=== PATIENT | female | born 1945 | race Caucasian/White ===

== ENCOUNTER 2017-12-28 20:25 | Inpatient (IN) | payer MEDICARE ==
[~2017-12-28] VITALS: Ht 162.6 cm; Wt 65.9 kg
[~2017-12-28 20:25] MED LIST: ADLT ASA LOW81 MG PO; ALBUTEROL S2.5 MG/.5 IN; ANTIVERT PO; ASTEPRO0.15 % NAS; AUGMENTIN875TAB PO; AZELASTINE0.1 %; BABY ASPIRIN81 MG PO; CEPHALEXIN500 MG PO; CIPRO XR500 MG PO; CIPRO500 MG PO; CIPROFLOXACN500 MG PO; CRESTOR10 MG PO; FISH OIL1000 M1 PO; FISH OIL1000 MG PO; FLONASE SPRAY50 MC1; FLORASTOR250 M1 PO; FLUTICASONE50 MCG; GLIPIZIDE10 M1 PO; GLUCOTROL10 MG PO; JANUVIA100 MG PO; KEFLEX500 MG PO; LANTUS SC; LANTUS100 UNIT/M SC; LEVAQUIN500 MG PO; LEVAQUIN750 MG PO; LEXAPRO10 MG PO; LOTREL 5/101 CAP PO; METFORMIN1000 MG PO; NASONEX50 MCG/AC; NICOTINE21 MG/24 H TD; NITROGLYCER0.4 MG SL; NOVOLOG FLEXPEN SC; PREDNISONE10 MG PO; PROAIR HFA IN; QVAR80 MCG IN; SM ASA CHLD81 MG OR; SPIRIVA HANDIHALER IN; SYMBICORT1 AE1 IN; TESSALON200 MG PO; TORADOL OR; VITAMIN D31000 UNI1 PO; VITAMIN D400 UNI2 OR; ZITHROMAX250 MG PO; ZYRTEC10 MG PO; [UNRECOGNIZED DRUG - OTHER] PO
[2017-12-28 21:35] LABS: HEMOGLOBIN 15.6 g/dl (12.0-16.0); IMMATURE GRANULOCYTES 0.4 % (0.0-1.0); MEAN CELL VOLUME 92.7 fL CALC (80.0-100.0); MEAN CORPUSCULAR HGB 31.5 pG CALC (26.0-32.0); MEAN CORPUSCULAR HGB CONC 33.9 g/L CALC (32.0-36.0); NEUT# 11.09 thou/uL (2.00-7.15); RED BLOOD COUNT 4.96 mill/uL (4.20-5.60); RED CELL DISTRI WIDTH 12.3 % (11.5-15.5)
[2017-12-28 21:49] LABS: ALBUMIN 4.1 g/dL (3.2-5.0); ALKALINE PHOSPHATASE 115 u/l (38-126); ANION GAP 14 (6-22 (CALC)); BILIRUBIN, TOTAL 0.3 mg/dL (0.0-1.4); BUN 17 mg/dL (8-23); BUN/CREATININE RATIO 21 (12-20 (CALC)); CARBON DIOXIDE 25 mmol/l (22-30); CHLORIDE 109 mmol/l (95-108); CREATININE 0.8 mg/dL (0.5-1.0); GFR > 60 ML/MIN (>=60 (CALC)); GFR FOR AFR.AMER. > 60 ML/MIN (>=60 (CALC)); SGOT/AST 38 u/l (9-36); SGPT/ALT 24 u/l (11-66); SODIUM 144 mmol/l (137-146); TOTAL PROTEIN 6.9 g/dL (6.3-8.2)
[2017-12-28 21:50] LABS: ACT PARTIAL THROMBO TIME 24.3 SECONDS (20.0-32.5); PROTHROMBIN TIME 10.7 SECONDS (9.0-12.5)
[2017-12-29 00:35] VITALS: BP 142/73
[2017-12-29 05:40] LABS: URINE BILIRUBIN - DIPSTICK NEGATIVE (NEGATIVE); URINE BLOOD DIPSTICK NEGATIVE (NEGATIVE); URINE COLOR YELLOW; URINE GLUCOSE - DIPSTICK NEGATIVE (NEGATIVE); URINE KETONE NEGATIVE (NEGATIVE); URINE LEUK ESTERASE NEGATIVE (NEGATIVE); URINE NITRITE - DIPSTICK NEGATIVE (Negative); URINE PROTEIN - DIPSTICK 30 mg/dL (NEG-TRACE); URINE SPECIFIC GRAVITY 1.025; URINE UROBILINOGEN - DIPSTICK 0.2 E.U./dL (0.2)
[2017-12-29 05:45] LABS: URINE CLARITY CLEAR
[2017-12-29 05:53] LABS: URINE RBC 0-2 RBC/hpf (0-5); URINE WBC 0-2 WBC/hpf (0-5)
[2017-12-29 06:00] VITALS: BP 125/60
[2017-12-29 08:00] VITALS: BP 113/63
[2017-12-29 08:55] LABS: CHOLESTEROL HDL RATIO 2.6 (<4.4 (CALC))
[2017-12-29 15:15] VITALS: BP 108/52
== END 2017-12-29 18:12 | DRG 536 ==
LOC: ED 20:25 → ED-I 23:00 → ED 23:50 → MS2 23:51
PROVIDERS: Emergency Medicine; Nurse Practitioner Family; ADMIT Internal Medicine; ATTEND Internal Medicine
PROC: 0T9B70Z Drainage of Bladder with Drainage Device, Via Natural or Artificial Opening (ICD-10-PCS; principal; 2017-12-28)
DX: S72.142A Displaced intertrochanteric fracture of left femur, initial encounter for closed fracture (principal); E11.8 Type 2 diabetes mellitus with unspecified complications; I44.7 Left bundle-branch block, unspecified; J44.9 Chronic obstructive pulmonary disease, unspecified; I10 Essential (primary) hypertension; E78.5 Hyperlipidemia, unspecified; F41.9 Anxiety disorder, unspecified; F32.9 Major depressive disorder, single episode, unspecified; F17.210 Nicotine dependence, cigarettes, uncomplicated; M81.0 Age-related osteoporosis without current pathological fracture; W01.0XXA Fall on same level from slipping, tripping and stumbling without subsequent striking against object, initial encounter; Z79.4 Long term (current) use of insulin; Z85.828 Personal history of other malignant neoplasm of skin; Z82.49 Family history of ischemic heart disease and other diseases of the circulatory system

== ENCOUNTER 2018-05-03 16:39 | Inpatient (IN) | payer MEDICARE ==
[~2018-05-03] VITALS: Ht 165.1 cm; Wt 60.3 kg
[~2018-05-03 16:39] MED LIST changes: +ASPIRINCHW 81MG PO; -BABY ASPIRIN81 MG PO; +KONSYL PO; +VITAMIN D400 UNI1 PO
[2018-05-07] VITALS (8 sets, daily range): BP systolic 89–113; BP diastolic 41–64
[2018-05-08 00:17] VITALS: BP 104/54
[2018-05-08 04:00] VITALS: BP 140/66
[2018-05-08 05:35] LABS: HEMATOCRIT 40.4 % (37.0-47.0); MEAN CELL VOLUME 93.5 fL CALC (80.0-100.0); MEAN CORPUSCULAR HGB 30.3 pG CALC (26.0-32.0); MEAN CORPUSCULAR HGB CONC 32.4 g/L CALC (32.0-36.0); RED BLOOD COUNT 4.32 mill/uL (4.20-5.60); RED CELL DISTRI WIDTH 12.9 % (11.5-15.5)
[2018-05-08 05:53] LABS: BUN 9 mg/dL (8-23); BUN/CREATININE RATIO 16 (12-20 (CALC)); CARBON DIOXIDE 25 mmol/l (22-30); CHLORIDE 103 mmol/l (95-108); CREATININE 0.5 mg/dL (0.5-1.0); GFR > 60 ML/MIN (>=60 (CALC)); GFR FOR AFR.AMER. > 60 ML/MIN (>=60 (CALC)); MAGNESIUM 1.5 mg/dL (1.6-2.3); POTASSIUM 4.6 mmol/l (3.5-5.1)
[2018-05-08 06:05] LABS: ANION GAP 13 (6-22 (CALC))
[2018-05-08 06:06] LABS: SODIUM 136 mmol/l (137-146)
[2018-05-08 06:11] LABS: HEMOGLOBIN 13.1 g/dl (12.0-16.0)
[2018-05-08 07:30] VITALS: BP 132/59
[2018-05-08 15:36] VITALS: BP 151/67
[2018-05-08 19:00] VITALS: BP 149/73
[2018-05-08 23:49] VITALS: BP 135/69
[2018-05-09 04:00] VITALS: BP 154/62
[2018-05-09 05:29] LABS: HEMATOCRIT 42.2 % (37.0-47.0); IMMATURE GRANULOCYTES 0.5 % (0.0-5.0); MEAN CELL VOLUME 90.8 fL CALC (80.0-100.0); MEAN CORPUSCULAR HGB 30.1 pG CALC (26.0-32.0); MEAN CORPUSCULAR HGB CONC 33.2 g/L CALC (32.0-36.0); NEUT# 11.6 thou/uL (2.00-7.15); RED BLOOD COUNT 4.65 mill/uL (4.20-5.60); RED CELL DISTRI WIDTH 12.8 % (11.5-15.5)
[2018-05-09 05:36] LABS: ANION GAP 14 (6-22 (CALC)); BUN 8 mg/dL (8-23); BUN/CREATININE RATIO 15 (12-20 (CALC)); CARBON DIOXIDE 25 mmol/l (22-30); CHLORIDE 99 mmol/l (95-108); CREATININE 0.5 mg/dL (0.5-1.0); GFR > 60 ML/MIN (>=60 (CALC)); GFR FOR AFR.AMER. > 60 ML/MIN (>=60 (CALC)); MAGNESIUM 1.8 mg/dL (1.6-2.3); POTASSIUM 4.5 mmol/l (3.5-5.1); SODIUM 134 mmol/l (137-146)
[2018-05-09 07:49] VITALS: BP 140/61
[2018-05-09 16:16] VITALS: BP 124/67
[2018-05-09 19:00] VITALS: BP 135/72
[2018-05-09 23:52] VITALS: BP 118/64
[2018-05-10 04:48] VITALS: BP 127/61
[2018-05-10 08:42] VITALS: BP 111/57
[2018-05-10 09:40] LABS: HEMATOCRIT 39.2 % (37.0-47.0); IMMATURE GRANULOCYTES 0.6 % (0.0-5.0); MEAN CELL VOLUME 91.8 fL CALC (80.0-100.0); MEAN CORPUSCULAR HGB 30.4 pG CALC (26.0-32.0); MEAN CORPUSCULAR HGB CONC 33.2 g/L CALC (32.0-36.0); NEUT# 9.32 thou/uL (2.00-7.15); RED BLOOD COUNT 4.27 mill/uL (4.20-5.60); RED CELL DISTRI WIDTH 13.2 % (11.5-15.5)
[2018-05-10 10:45] LABS: ANION GAP 11 (6-22 (CALC)); BUN 15 mg/dL (8-23); BUN/CREATININE RATIO 25 (12-20 (CALC)); CARBON DIOXIDE 29 mmol/l (22-30); CHLORIDE 99 mmol/l (95-108); CREATININE 0.6 mg/dL (0.5-1.0); GFR > 60 ML/MIN (>=60 (CALC)); GFR FOR AFR.AMER. > 60 ML/MIN (>=60 (CALC)); MAGNESIUM 1.8 mg/dL (1.6-2.3); POTASSIUM 4.4 mmol/l (3.5-5.1); SODIUM 135 mmol/l (137-146)
[2018-05-10] MEDS ORDERED: ASPIRIN EC325 MG PO (12:32)
[2018-05-10] MEDS ORDERED: PERCOCET 10/31 COMBO PO (12:32)
[2018-05-10 15:31] VITALS: BP 133/58
[2018-05-10 19:00] VITALS: BP 115/66
[2018-05-11] VITALS: BP 112/63
[2018-05-11 05:59] LABS: HEMOGLOBIN 12.7 g/dl (12.0-16.0)
[2018-05-11 07:32] VITALS: BP 126/60
== END 2018-05-11 14:55 | DRG 470 ==
LOC: MS2 05-07 05:57
PROVIDERS: Nurse Practitioner Family; ADMIT Orthopaedic Surgery; ATTEND Orthopaedic Surgery
PROC: 0SRD0J9 Replacement of Left Knee Joint with Synthetic Substitute, Cemented, Open Approach (ICD-10-PCS; principal; 2018-05-07)
DX: M17.12 Unilateral primary osteoarthritis, left knee (principal); I10 Essential (primary) hypertension; J44.9 Chronic obstructive pulmonary disease, unspecified; E11.9 Type 2 diabetes mellitus without complications; F32.9 Major depressive disorder, single episode, unspecified; F41.9 Anxiety disorder, unspecified; E78.5 Hyperlipidemia, unspecified; F17.210 Nicotine dependence, cigarettes, uncomplicated; E83.42 Hypomagnesemia; K59.03 Drug induced constipation; T40.605A Adverse effect of unspecified narcotics, initial encounter; Z79.84 Long term (current) use of oral hypoglycemic drugs

== ENCOUNTER → 2018-12-04 | Outpatient (REF) | payer MEDICARE ==
[~2018-12-04] MED LIST changes: +ASPIRIN EC325 MG PO; +PERCOCET 10/31 COMBO PO
[2018-12-04 07:39] LABS: HEMATOCRIT 47.8 % (37.0-47.0); HEMOGLOBIN 14.9 g/dl (12.0-16.0); MEAN CELL VOLUME 93.5 fL CALC (80.0-100.0); MEAN CORPUSCULAR HGB 29.2 pG CALC (26.0-32.0); MEAN CORPUSCULAR HGB CONC 31.2 g/L CALC (32.0-36.0); RED BLOOD COUNT 5.11 mill/uL (4.20-5.60); RED CELL DISTRI WIDTH 13.3 % (11.5-15.5)
[2018-12-04 08:06] LABS: ALBUMIN 3.9 g/dL (3.2-5.0); ALKALINE PHOSPHATASE 103 u/l (38-126); ANION GAP 15 (6-22 (CALC)); BILIRUBIN, TOTAL 0.3 mg/dL (0.0-1.4); BUN 14 mg/dL (8-23); BUN/CREATININE RATIO 19 (12-20 (CALC)); CALCULATED LDLCHOLESTEROL 68 mg/dL (62-129 (CALC)); CARBON DIOXIDE 27 mmol/l (22-30); CHLORIDE 105 mmol/l (95-108); CHOLESTEROL HDL RATIO 2.8 (<4.4 (CALC)); CREATININE 0.7 mg/dL (0.5-1.0); GFR > 60 ML/MIN (>=60 (CALC)); GFR FOR AFR.AMER. > 60 ML/MIN (>=60 (CALC)); HDL CHOLESTEROL 47 mg/dL (>=40); POTASSIUM 4.6 mmol/l (3.5-5.1); SGOT/AST 19 u/l (9-36); SODIUM 142 mmol/l (137-146); TOTAL CHOLESTEROL 133 mg/dl (0-199); TOTAL PROTEIN 6.6 g/dL (6.3-8.2); TOTAL TRIGLYCERIDES 92 mg/dl (30-149); VLDL CHOLESTROL 18 mg/dl (0-48 (CALC))
[2018-12-04 09:42] LABS: URINE BILIRUBIN - DIPSTICK NEGATIVE (NEGATIVE); URINE BLOOD DIPSTICK NEGATIVE (NEGATIVE); URINE COLOR YELLOW; URINE GLUCOSE - DIPSTICK NEGATIVE (NEGATIVE); URINE KETONE NEGATIVE (NEGATIVE); URINE LEUK ESTERASE NEGATIVE (NEGATIVE); URINE NITRITE - DIPSTICK NEGATIVE (Negative); URINE PROTEIN - DIPSTICK 30 mg/dL (NEG-TRACE); URINE SPECIFIC GRAVITY 1.015; URINE UROBILINOGEN - DIPSTICK 0.2 E.U./dL (0.2)
[2018-12-04 09:46] LABS: URINE EPITHELIAL CELLS FEW EPI/hpf (0-FEW)
== END | disposition home or self-care (01) ==
LOC: LAB 06:52
PROVIDERS: ATTEND Nurse Practitioner Adult Health
DX: E11.65 Type 2 diabetes mellitus with hyperglycemia (principal); I10 Essential (primary) hypertension

== ENCOUNTER 2019-09-04 08:44 | Day surgery (SDC) | payer MEDICARE ==
[~2019-09-04] VITALS: Ht 162.6 cm; Wt 57.6 kg
[~2019-09-04 08:44] MED LIST changes: +ACITRETIN10 MG PO; +AZELASTINE HCL0.1 %; +CITRACAL + D3 MAXIMU PO; +FLONASE SE27.5 MCG/S NAB; +GLIPIZIDE ER10 M1 PO; -GLUCOTROL10 MG PO; +PROBIOTI2 PO; +SERTRALINE25 MG PO; +ZESTRIL5 M1 PO; +[UNRECOGNIZED DRUG - OTHER]; +[UNRECOGNIZED DRUG - OTHER] PO
[2019-09-04 11:36] VITALS: BP 145/65
== END 2019-09-04 11:20 | disposition home or self-care (01) ==
LOC: ORM 08:44
PROVIDERS: ATTEND Surgery
PROC: 0DBE8ZX Excision of Large Intestine, Via Natural or Artificial Opening Endoscopic, Diagnostic (ICD-10-PCS; principal; 2019-09-04)
DX: K57.30 Diverticulosis of large intestine without perforation or abscess without bleeding (principal); K50.10 Crohn's disease of large intestine without complications

== ENCOUNTER 2019-10-19 | Emergency (ER) | payer MEDICARE ==
[2019-10-19] MEDS ORDERED: LISINOPRIL10 M1 PO (11:15)
[2019-10-19 11:18] LABS: URINE BILIRUBIN - DIPSTICK NEGATIVE (NEGATIVE); URINE BLOOD DIPSTICK LARGE (NEGATIVE); URINE COLOR YELLOW; URINE GLUCOSE - DIPSTICK 250 mg/dL (NEGATIVE); URINE KETONE NEGATIVE (NEGATIVE); URINE NITRITE - DIPSTICK NEGATIVE (Negative); URINE PH 6.5 (4.5-8.0); URINE PROTEIN - DIPSTICK 100 mg/dL (NEG-TRACE); URINE SPECIFIC GRAVITY 1.015; URINE UROBILINOGEN - DIPSTICK 0.2 E.U./dL (0.2)
[2019-10-19] MEDS ORDERED: LANTUS SOL100 UNIT/M SC (11:18)
[2019-10-19 11:20] LABS: URINE LEUK ESTERASE MODERATE (NEGATIVE)
[2019-10-19 11:21] LABS: URINE RBC 25-50 RBC/hpf (0-5)
[2019-10-19 11:22] LABS: URINE BACTERIA FEW hpf; URINE EPITHELIAL CELLS FEW EPI/hpf (0-FEW); URINE WBC 20-50 WBC/hpf (0-5)
[2019-10-19] MEDS ORDERED: MACROBID100 MG PO (11:26)
== END 2019-10-19 11:30 | disposition home or self-care (01) ==
DX: N39.0 Urinary tract infection, site not specified (principal); E11.9 Type 2 diabetes mellitus without complications; I10 Essential (primary) hypertension; J44.9 Chronic obstructive pulmonary disease, unspecified; F17.210 Nicotine dependence, cigarettes, uncomplicated; B96.89 Other specified bacterial agents as the cause of diseases classified elsewhere; Z79.4 Long term (current) use of insulin

== ENCOUNTER 2019-11-16 05:20 | Observation (INO) | payer MEDICARE ==
[~2019-11-16] VITALS: Ht 162.6 cm; Wt 59.5 kg
[~2019-11-16 05:20] MED LIST changes: +LANTUS SOL100 UNIT/M SC; +LISINOPRIL10 M1 PO; +MACROBID100 MG PO
--- NOTE | 2019-11-16 05:20 | NUR ---
BY WC TO ROOM
--- NOTE | 2019-11-16 06:08 | NUR ---
PO ASA AND NITROPASTE GIVEN PER MD ORDER.
[2019-11-16] MEDS ORDERED: FIBER FORMULA PO (06:12)
[2019-11-16] MEDS ORDERED: FISH OIL1 CAP PO (06:13)
[2019-11-16 06:15] LABS: HEMATOCRIT 48.3 % (37.0-47.0); HEMOGLOBIN 15.3 g/dl (12.0-16.0); IMMATURE GRANULOCYTES 0.3 % (0.0-5.0); MEAN CELL VOLUME 93.6 fL CALC (80.0-100.0); MEAN CORPUSCULAR HGB 29.7 pG CALC (26.0-32.0); MEAN CORPUSCULAR HGB CONC 31.7 g/L CALC (32.0-36.0); NEUT# 4.97 thou/uL (2.00-7.15); RED BLOOD COUNT 5.16 mill/uL (4.20-5.60); RED CELL DISTRI WIDTH 13.4 % (11.5-15.5)
[2019-11-16 06:16] LABS: URINE BILIRUBIN - DIPSTICK NEGATIVE (NEGATIVE); URINE BLOOD DIPSTICK TRACE-LYSED (NEGATIVE); URINE COLOR YELLOW; URINE GLUCOSE - DIPSTICK NEGATIVE (NEGATIVE); URINE KETONE NEGATIVE (NEGATIVE); URINE LEUK ESTERASE NEGATIVE (NEGATIVE); URINE NITRITE - DIPSTICK NEGATIVE (Negative); URINE PH 7.5 (4.5-8.0); URINE PROTEIN - DIPSTICK 30 mg/dL (NEG-TRACE); URINE UROBILINOGEN - DIPSTICK 0.2 E.U./dL (0.2)
[2019-11-16 06:19] LABS: URINE BACTERIA RARE hpf; URINE EPITHELIAL CELLS FEW EPI/hpf (0-FEW); URINE WBC 0-2 WBC/hpf (0-5)
[2019-11-16 06:28] LABS: PROTHROMBIN TIME 10.3 SECONDS (9.0-12.5)
[2019-11-16 06:41] LABS: MYOGLOBIN 42 ng/mL (0 - 62)
--- NOTE | 2019-11-16 06:45 | NUR ---
REPORT TO KEV GALE.
[2019-11-16 06:58] LABS: ALBUMIN 4.1 g/dL (3.2-5.0); ALKALINE PHOSPHATASE 89 u/l (38-126); ANION GAP 13 (6-22 (CALC)); BILIRUBIN, TOTAL 0.4 mg/dL (0.0-1.4); BUN 12 mg/dL (8-23); BUN/CREATININE RATIO 17 (12-20 (CALC)); CARBON DIOXIDE 27 mmol/l (22-30); CHLORIDE 104 mmol/l (95-108); CREATININE 0.8 mg/dL (0.5-1.0); GFR > 60 ML/MIN (>=60 (CALC)); GFR FOR AFR.AMER. > 60 ML/MIN (>=60 (CALC)); SGOT/AST 33 u/l (9-36); SODIUM 141 mmol/l (137-146); TOTAL PROTEIN 7.5 g/dL (6.3-8.2)
--- NOTE | 2019-11-16 07:00 | NUR ---
PT RESTING QUIETLY ON STRETCHER, ADVISED OF ADMISSION TO HOSPITAL, PT VOICES UNDERSTANDING.
--- NOTE | 2019-11-16 07:33 | NUR ---
PT DENIES ANY CHEST PAIN AT THIS TIME, ALERT/ORIENTED X3, FAMILY AT BEDSIDE, ADVISED OF WAIT TIME FOR ADMISSION.
--- NOTE | 2019-11-16 07:37 | NUR ---
INFORMED OF NO TELEMETRY MONITERS AVAILBLE AT THIS TIME TO TRANSFER PTS TO [facility]. ADVISED PT OF STATUS, AND MEAL TRAYS ORDERED.
--- NOTE | 2019-11-16 08:17 | NUR ---
ADVISED OF UPDATE OF STATUS FOR ADMISSION BED. MEAL TRAY GIVEN, PT RESTING QUIETLY ON STRETCHER, WITH FAMILY AT BEDSIDE, VSS, PT REMAINS ALERT/ORIENTED X3, SIDE RAILS UP AND CALL LIGHT WITHIN REACH. ACCUCHECK DONE BEFORE MEAL 121.
--- NOTE | 2019-11-16 08:48 | NUR ---
PT UP TO BEDSIDE COMMODE, 250 CC OF LIGHT YELLOW URINE OUTPUT. APPROX 75 % OF MEAL TRAY EATEN. PT PLACED BACK IN BED AND SIDE RAILS UP, PT RESTING WATCHING TV. FAMILY AT BEDSIDE.
--- NOTE | 2019-11-16 10:23 | NUR ---
REPORT GIVEN TO [facility], PT TRANSFERRED PER STRETCHER
--- NOTE | 2019-11-16 11:59 | NUR ---
AXLE AND FRAME MECHANIC AT BEDSIDE TO DISCUSS POC
--- NOTE | 2019-11-16 16:04 | NUR ---
PT RESTING IN BED, VISITORS AT BEDSIDE, PT VOICES NO NEEDS OR COMPLAINTS AT THIS TIME, CALL LIGHT IN REACH,CONTINUE TO MONITOR.
[2019-11-16 16:35] VITALS: BP 157/70
--- NOTE | 2019-11-16 18:07 | NUR ---
PT GIVEN 1 UNIT OF INSULIN, INITIATED IV FLUIDS. PT TEARFUL STATES SHE WANTS TO GO HOME, DISCUSSED POC AND NEURO CHECKS AND TROPONINS, PT VERBALIZED UNDERSTANDING, AGREES TO STAY FOR THE NIGHT, CALL LIGHT IN REACH,CONTINUE TO MONITOR.
[2019-11-16 19:00] VITALS: BP 146/67
--- NOTE | 2019-11-16 20:17 | NUR ---
PT SITTING IN BED WITH FAMILY MEMBER AT BEDSIDE. A&O X3. DENIES ANY CP AT THIS TIME. NO DISTRESS NOTED. 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 SPECIAL INSTRUCTIONS AND DRESSIGN MATERIALS USED, PER FAMILY MEMBER SHE FORGOT TO BRING THE SUPPLIES IN. CAR DELIVERER NOTIFIED, DISCUSSED POSSIBILITY OF D/C TOMORROW. DRESSING TO BE LEFT IN PLACE UNTIL APPROPRIATE SUPPLIES ARE AVAILABLE. PT AND FAMILY MEMBER AGREED AND VERBALIZED UNDERSTANDING. EXPLAINED TO PT THAT TROPONIN RESULTS CAME BACK NEGATIVE AND WITHIN NORMAL LIMITS. PT VERBALIZED UNDERSTANDING. DISCUSSED POC. ASSESSMENT COMPLETED. CALL LIGHT IN REACH. CONTINUE TO MONITOR.
[2019-11-17] VITALS: BP 140/72
--- NOTE | 2019-11-17 00:12 | NUR ---
OFFERED PT NITRO PASTE, PT DECLINED AND DENIED ANY CP AT THIS TIME. CALL LIGHT IN REACH, CONTINUE TO MONITOR.
--- NOTE | 2019-11-17 02:30 | NUR ---
PT SLEEPING IN BED WITH FAMILY MEMBER AT BEDSIDE. NO DISTRESS NOTED. RESP EVEN AND UNLABORED. CONTINUE TO MONITOR.
[2019-11-17 04:00] VITALS: BP 145/73; BP 145/79
--- NOTE | 2019-11-17 06:17 | NUR ---
PT SITTING IN BED WATCHING TV. DENIES CP AT THIS TIME. CALL LIGHT IN REACH. CONTINUE TO MONITOR.
[2019-11-17 07:03] VITALS: BP 149/70
--- NOTE | 2019-11-17 07:03 | NUR ---
PT RESTING IN BED, NO SIGNS OF DISTRESS NOTED, RESP EVEN AND UNLABORED. PT ALERT AND ORIENTED X3, NO EDEMA. DISCUSSED POC. VITALS OBTAINED, PT DENIES AND CHEST PAIN. ASSESSMENT COMPLETED, CALL LIGHT IN REACH,CONTINUE TO MONITOR.
--- NOTE | 2019-11-17 08:50 | NUR ---
PT RESTING IN BED, NO SIGNS OF DISTRESS NOTED, RESP EVEN AND UNLABORED. DAUGHTER AT BEDSIDE, PT VOICES NO NEEDS OR COMPLAINTS, MEDICATED PER MAR, CALL LIGHT IN REACH,CONTINUE TO MONITOR.
[2019-11-17 11:00] VITALS: BP 140/60
--- NOTE | 2019-11-17 11:00 | NUR ---
PT RESTING IN BED WATCHING TV, MEDICATED WITH INSULIN. PT VOICES NO NEEDS OR COMPLAINTS AT THIS TIME, PT DENIES CP AND REFUSED NITRO PASTE. CALL LIGHT IN REACH,CONTINUE TO MONITOR.
[2019-11-17 11:09] VITALS: BP 149/70
--- NOTE | 2019-11-17 13:09 | NUR ---
Discharge instructions given. Patient verbalizes understanding of same. Discharged in stable condition via Wheelchair to Home with family. All belongings sent with pt.
== END 2019-11-17 13:10 | disposition home or self-care (01) ==
LOC: ED 05:20 → ED-I 06:53 → ED 07:14 → ED-I 07:15 → MS2 10:07
PROVIDERS: Emergency Medicine; ADMIT Internal Medicine; ATTEND Internal Medicine
DX: R07.9 Chest pain, unspecified (principal); E11.9 Type 2 diabetes mellitus without complications; I10 Essential (primary) hypertension; J43.9 Emphysema, unspecified; E78.5 Hyperlipidemia, unspecified; F17.210 Nicotine dependence, cigarettes, uncomplicated; Z79.4 Long term (current) use of insulin; Z82.49 Family history of ischemic heart disease and other diseases of the circulatory system; R06.02 Shortness of breath
CPT/HCPCS: G0378

== ENCOUNTER 2021-10-25 11:42 | Observation (INO) | payer MEDICARE ==
[~2021-10-25] VITALS: Ht 162.6 cm; Wt 61.5 kg
[~2021-10-25 11:42] MED LIST changes: +FIBER FORMULA PO; +FISH OIL1 CAP PO
[2021-10-25 14:31] LABS: HEMATOCRIT 47.1 % (37.0-47.0); HEMOGLOBIN 15.3 g/dl (12.0-16.0); IMMATURE GRANULOCYTES 0.2 % (0.0-5.0); MEAN CELL VOLUME 93.8 fL CALC (80.0-100.0); MEAN CORPUSCULAR HGB 30.5 pG CALC (26.0-32.0); MEAN CORPUSCULAR HGB CONC 32.5 g/dL CAL (32.0-36.0); NEUT# 3.98 thou/uL (2.00-7.15); RED BLOOD COUNT 5.02 mill/uL (4.20-5.60); RED CELL DISTRI WIDTH 13.6 % (11.5-15.5)
[2021-10-25 14:47] LABS: ALBUMIN 3.6 g/dL (3.2-5.0); ALKALINE PHOSPHATASE 63 u/l (38-126); ANION GAP 11 (6-22 (CALC)); BILIRUBIN, TOTAL 0.5 mg/dL (0.0-1.4); BUN 14 mg/dL (8-23); BUN/CREATININE RATIO 19 (12-20 (CALC)); CARBON DIOXIDE 23 mmol/l (22-30); CHLORIDE 108 mmol/l (95-108); CREATININE 0.7 mg/dL (0.5-1.0); GFR > 60 ML/MIN (>=60 (CALC)); GFR FOR AFR.AMER. > 60 ML/MIN (>=60 (CALC)); POTASSIUM 4.3 mmol/l (3.5-5.1); SODIUM 137 mmol/l (137-146); TOTAL PROTEIN 7.1 g/dL (6.3-8.2)
[2021-10-25 15:05] LABS: SGOT/AST 48 u/l (9-36)
[2021-10-25 18:30] VITALS: BP 140/60
[2021-10-26] VITALS: BP 154/72
[2021-10-26 04:00] VITALS: BP 145/87
[2021-10-26 05:32] LABS: HEMATOCRIT 47.4 % (37.0-47.0); MEAN CELL VOLUME 95.2 fL CALC (80.0-100.0); MEAN CORPUSCULAR HGB 30.1 pG CALC (26.0-32.0); MEAN CORPUSCULAR HGB CONC 31.6 g/dL CAL (32.0-36.0); NEUT# 1.25 thou/uL (2.00-7.15); RED BLOOD COUNT 4.98 mill/uL (4.20-5.60); RED CELL DISTRI WIDTH 13.5 % (11.5-15.5)
[2021-10-26 06:05] LABS: ALKALINE PHOSPHATASE 65 u/l (38-126); ANION GAP 10 (6-22 (CALC)); BILIRUBIN, TOTAL 0.3 mg/dL (0.0-1.4); BUN 17 mg/dL (8-23); BUN/CREATININE RATIO 21 (12-20 (CALC)); C-REACTIVE PROTEIN 3.2 mg/dL (0-0.9); CARBON DIOXIDE 23 mmol/l (22-30); CHLORIDE 112 mmol/l (95-108); CREATININE 0.8 mg/dL (0.5-1.0); GFR > 60 ML/MIN (>=60 (CALC)); GFR FOR AFR.AMER. > 60 ML/MIN (>=60 (CALC)); POTASSIUM 5.1 mmol/l (3.5-5.1); SGOT/AST 31 u/l (9-36); SODIUM 140 mmol/l (137-146); TOTAL PROTEIN 5.7 g/dL (6.3-8.2)
[2021-10-26 06:09] LABS: ALBUMIN 2.8 g/dL (3.2-5.0)
[2021-10-26 07:54] VITALS: BP 135/57
[2021-10-26 10:35] VITALS: BP 146/63
[2021-10-26] MEDS ORDERED: DEXAMETHASON6 MG PO (14:15)
[2021-10-26] MEDS ORDERED: ZITHROMAX250 MG PO (14:15)
[2021-10-26] MEDS ORDERED: VENTOLIN HFA108 MCG IN (14:17)
[2021-10-26] MEDS ORDERED: ASPIRIN REGULA325 M1 PO (14:21)
== END 2021-10-26 16:32 ==
LOC: ED 11:42 → ED-I 16:00 → ED 16:30 → MS2 16:31
PROVIDERS: Emergency Medicine; ADMIT Internal Medicine; ATTEND Internal Medicine
PROC: XW033E5 Introduction of Remdesivir Anti-infective into Peripheral Vein, Percutaneous Approach, New Technology Group 5 (ICD-10-PCS; principal; 2021-10-26)
DX: U07.1 COVID-19 (principal); J12.82 Pneumonia due to coronavirus disease 2019; J44.0 Chronic obstructive pulmonary disease with (acute) lower respiratory infection; I10 Essential (primary) hypertension; E11.9 Type 2 diabetes mellitus without complications; E78.5 Hyperlipidemia, unspecified; F41.9 Anxiety disorder, unspecified; F32.A Depression, unspecified; F17.200 Nicotine dependence, unspecified, uncomplicated; Z79.4 Long term (current) use of insulin
CPT/HCPCS: J1650

== ENCOUNTER 2024-11-22 18:26 | Emergency (ER) | payer MEDICARE, MEDICAID ==
[~2024-11-22] VITALS: Ht 162.6 cm; Wt 67.0 kg
[2024-11-22] VITALS (34 sets, daily range): BP systolic 80–109; BP diastolic 20–65
[~2024-11-22 18:26] MED LIST changes: +ASPIRIN REGULA325 M1 PO; +DEXAMETHASON6 MG PO; +TRAMADOL HCL50 MG PO; +VENTOLIN HFA108 MCG IN
[2024-11-22] MEDS ORDERED: SODIUM CHLORIDE 0.9% 1,000 ML IV ONE ×2 (18:40→20:20)
[2024-11-22 18:57] LABS: BASO% 0.4 % (0-3); EOS% 0.7 % (0-8); IMMATURE GRANULOCYTES 0.4 % (0.0-5.0); LYMPH% 7.6 % (15-41); MEAN CELL VOLUME 89.6 fL CALC (80.0-100.0); MEAN CORPUSCULAR HGB 25.5 pG CALC (26.0-32.0); MEAN CORPUSCULAR HGB CONC 28.5 g/dL CAL (32.0-36.0); MONO% 3.3 % (2-13); NEUT# 11.96 thou/uL (2.00-7.15); NEUT% 87.6 % (42-76); RED BLOOD COUNT 1.92 mill/uL (4.20-5.60); RED CELL DISTRI WIDTH 15.9 % (11.5-15.5)
[2024-11-22 19:13] LABS: ALBUMIN 3.3 g/dL (3.2-5.0); BILIRUBIN, TOTAL 0.2 mg/dL (0.02-1.3); CREATININE 1.2 mg/dL (0.5-1.0); TOTAL PROTEIN 5.8 g/dL (6.3-8.2)
[2024-11-22 19:18] LABS: HEMATOCRIT 17.2 % (37.0-47.0); HEMOGLOBIN 4.9 g/dl (12.0-16.0)
[2024-11-22 19:25] LABS: BASO% 0.3 % (0-3); EOS% 0.5 % (0-8); IMMATURE GRANULOCYTES 0.3 % (0.0-5.0); LYMPH% 8.5 % (15-41); MEAN CELL VOLUME 89.6 fL CALC (80.0-100.0); MEAN CORPUSCULAR HGB 25.4 pG CALC (26.0-32.0); MEAN CORPUSCULAR HGB CONC 28.4 g/dL CAL (32.0-36.0); MONO% 3.5 % (2-13); NEUT# 10.79 thou/uL (2.00-7.15); NEUT% 86.9 % (42-76); RED BLOOD COUNT 1.73 mill/uL (4.20-5.60)
[2024-11-22 19:31] LABS: HEMATOCRIT 15.5 % (37.0-47.0); HEMOGLOBIN 4.4 g/dl (12.0-16.0)
[2024-11-22] MEDS ORDERED: ISOVUE-300 (Iopamidol) 100 ML SDV IV ONE (19:40)
[2024-11-22 19:42] LABS: POTASSIUM 5.8 mmol/l (3.5-5.1)
[2024-11-22] MEDS ORDERED: FAMOTIDINE 10MG/ML 2ML SDV IV ONE (19:45)
[2024-11-22] MEDS ORDERED: Pantoprazole Sodium 40 MG VIAL (Protonix) IV ONE (19:45)
[2024-11-22 22:27] LABS: URINE BILIRUBIN - DIPSTICK Negative (NEGATIVE); URINE BLOOD DIPSTICK Negative (NEGATIVE); URINE GLUCOSE - DIPSTICK 500 mg/dL (NEGATIVE); URINE KETONE Negative (NEGATIVE); URINE LEUK ESTERASE Trace (NEGATIVE); URINE PH 5.5 (4.5-8.0); URINE PROTEIN - DIPSTICK Trace mg/dL (NEG-TRACE); URINE UROBILINOGEN - DIPSTICK 0.2 E.U./dL (0.2)
[2024-11-22 22:28] LABS: URINE COLOR Yellow; URINE NITRITE - DIPSTICK Positive (Negative)
[2024-11-22 22:33] LABS: URINE BACTERIA MODERATE hpf; URINE RBC 0-2 RBC/hpf (0-5)
[2024-11-22 22:34] LABS: URINE SQUAMOUS EPITHELIAL CELL FEW EPI/hpf (0-FEW)
[2024-11-23] VITALS: BP 86/44
[2024-11-23 00:15] VITALS: BP 94/50
[2024-11-23 00:28] VITALS: BP 94/50
== END 2024-11-23 00:28 ==
LOC: ED 18:26
PROVIDERS: Nurse Practitioner
PROC: 30233N1 Transfusion of Nonautologous Red Blood Cells into Peripheral Vein, Percutaneous Approach (ICD-10-PCS; principal; 2024-11-22)
PROC: 30233N1 Transfusion of Nonautologous Red Blood Cells into Peripheral Vein, Percutaneous Approach (ICD-10-PCS; 2024-11-22)
DX: I21.4 Non-ST elevation (NSTEMI) myocardial infarction (principal); K92.2 Gastrointestinal hemorrhage, unspecified; D62 Acute posthemorrhagic anemia; E11.65 Type 2 diabetes mellitus with hyperglycemia; I10 Essential (primary) hypertension; E78.5 Hyperlipidemia, unspecified; J44.9 Chronic obstructive pulmonary disease, unspecified; F03.90 Unspecified dementia, unspecified severity, without behavioral disturbance, psychotic disturbance, mood disturbance, and anxiety; F17.200 Nicotine dependence, unspecified, uncomplicated; Z79.4 Long term (current) use of insulin; Z79.84 Long term (current) use of oral hypoglycemic drugs; Z87.440 Personal history of urinary (tract) infections
CPT/HCPCS: J2470; P9016